=== PATIENT | male | born 1980 | race Caucasian/White ===

== ENCOUNTER 2017-01-09 22:58 | Emergency (ER) | payer OTHER ==
[~2017-01-09] VITALS: Ht 180.3 cm; Wt 70.7 kg
[~2017-01-09 22:58] MED LIST: AUGMENTIN875 MG PO; BACTRIM,SEPT1 TABLET PO; BENADRYL ALLERG25 MG PO; BENTYL10 MG PO; CARISOPRODOL350 MG; CYCLOBENZAPRINE 10MG; ENDOCET 5-3251 EACH; FLEXERIL10 MG PO; FLEXERIL5 MG PO; FLUOXETINE HCL20 MG; HYDROCODON-ACE1 EAC7 PO; HYDROCODON-ACE1 EACH; NAPROSYN500 MG PO; NOHOMEMEDS; TRAMADOL HCL50 MG PO; TYLENOL WITH C1 EACH PO; VALACYCLOVIR1000 MG PO; ZOFRAN4 MG PO
[2017-01-09 23:26] LABS: MCH 30.9 PG (29.0-34.0); MCHC 33.4 G/DL (30.0-36.0); MCV 92.5 FL (86-99); MEAN PLAT.VOLUME 9.5 uM^3 (9.0-12.4); PLATELET COUNT 273 K/uL (156-360); RBC DIS.WIDTH-CV 12.4 % (11.8-14.6); RBC DIS.WIDTH-SD 42.5 % (39-53); RED BLOOD COUNT 5.08 M/uL (4.00-5.50); WHITE BLOOD COUNT 8.6 K/uL (4.1-10.2)
[2017-01-09 23:35] LABS: CHLORIDE 102 mEq/L (99-109); POTASSIUM 3.8 mEq/L (3.7-5.4); SODIUM 137 mEq/L (136-147)
[2017-01-09 23:37] LABS: GLUCOSE 96 mg/dL (70-99)
[2017-01-09 23:38] LABS: ANION GAP 9 MEQ/L (2-14)
[2017-01-09 23:41] LABS: GFR ESTIMATE (CALCULATED) > 59 mL/min/
[2017-01-09 23:42] LABS: UREA NITROGEN (BUN) 12 mg/dL (9-23)
[2017-01-09 23:46] LABS: TROP-I INTERPRETATION NEGATIVE; TROPONIN-I < 0.01 ng/mL (0.0-0.30)
[2017-01-10 00:09] LABS: D-DIMER ELISA 0.26 mg/L FEU (< 0.57)
[2017-01-10 00:46] LABS: ERTH.SED.RATE 7 MM/HR (0-15)
[2017-01-10 02:30] LABS: TROP-I INTERPRETATION NEGATIVE; TROPONIN-I < 0.01 ng/mL (0.0-0.30)
[2017-01-10] MEDS ORDERED: TORADOL10 MG PO (02:37)
[2017-01-10 02:42] VITALS: BP 140/87
[2017-01-10 03:26] LABS: C-REACTIVE PROTEIN 8.1 MG/L (0-10)
== END 2017-01-10 02:43 | disposition home or self-care (01) ==
LOC: EME 22:58
PROVIDERS: Emergency Medicine
DX: R07.9 Chest pain, unspecified (principal); S29.011A Strain of muscle and tendon of front wall of thorax, initial encounter; F17.200 Nicotine dependence, unspecified, uncomplicated; Z86.79 Personal history of other diseases of the circulatory system; Z88.6 Allergy status to analgesic agent
CPT/HCPCS: 71020; 80048; 84484; 85027; 85379; 85651; 86140; 93005; 99281; 99283